=== PATIENT | female | born 1965 | race Caucasian/White ===

== ENCOUNTER → 2020-05-17 11:11 | Outpatient (CLI) | payer BC ==
[2009-08-05 12:22] VITALS: BMI 22.1
== END | disposition home or self-care (01) ==
LOC: D.CT 11:00
PROVIDERS: ATTEND Clinical Nurse Specialist Family Health
DX: S92.355A Nondisplaced fracture of fifth metatarsal bone, left foot, initial encounter for closed fracture (principal)